=== PATIENT | female | born 1995 | race Caucasian/White ===

== ENCOUNTER 2016-10-08 21:10 | Emergency (ER) | payer OTHER ==
[~2016-10-08] VITALS: Ht 180.3 cm; Wt 70.5 kg
[2016-10-08 21:11] VITALS: BP 137/77; PULSE 72; RESP 16; O2SAT 100
[2016-10-08 21:44] LABS: APPEARANCE,URINE HAZY (CLEAR,HAZY); COLOR,URINE STRAW (YELLOW); OCCULT BLOOD,URINE LARGE (NEGATIVE); PH,URINE 6.5 (5.0-8.0); UROBILINOGEN,URINE NORMAL (NORMAL)
--- NOTE | 2016-10-08 21:58 | ED.REPORT ---
HPI- Female Date of Service Oct 08, 2016 ED Provider: Ghassan Kramer MD A healthy 21 year old female presents to the ED with dysuria that began earlier this afternoon. Associated symptoms include increased urinary frequency. Patient reports similar symptoms during previous UTI's and has had several in the past year. She denies any back pain, abdominal pain, nausea, vomiting or fever. Nursing Notes Stated Complaint: POSSIBLE UTI Chief Complaint: General Complaint Nursing Notes Reviewed: Yes Allergies: Coded Allergies: No Known Allergies (Unverified , 10/08/16) General Time Seen by MD: 21:52 Chief Complaint Dysuria Hx Obtained From: Patient Arrived By: Walk-in Sudden in Onset?: No Onset Occurred: 5 - 8 hours ago Symptom Duration: Since onset Associated with: Reports: UTI symptoms... (Dysuria), Denies: Fever, Nausea, Vomiting Pertinent Negative: Pt denies other symptoms Recent Healthcare: No recent doctor visit, No recent hospitalization Past Medical History Past Medical History None reported Past Surgical History None reported Smoking History Unknown if Ever Smoker Social History Other Social History: Good social support, Local resident Ambulatory Status Independent Review of Systems Constitutional: Denies: Chills, Fever GI: Denies: Abdominal pain, Nausea, Vomiting Female: Reports: Dysuria, Urinary frequency, Denies: Hematuria Musculoskeletal: Denies: Back pain Complete sys rev & neg: except as marked. Physical Exam Initial Vital Signs Vital Signs (First) Date Time Temp Pulse Resp B/P Pulse Ox O2 Delivery O2 Flow Rate FiO2 10/08/16 21:11 36.6 72 16 137/77 100 Room Air Initial VS: Unavailable, Vital signs normal Head / Eyes: Atraumatic, Normocephalic, PERRL Neck: Supple, Non-tender, Full range of motion Extremities: Vascular intact, Neuro intact, No swelling, No tenderness Skin: Warm, Dry, No cyanosis Neurologic: Alert, Oriented, Nonfocal Psychiatric: Mood/affect normal, Behavior normal, Normal thought content Female Genitourinary: Exam deferred Respiratory / Chest: Atraumatic, Breath sounds NL, Breath sounds = bilat, No respiratory distress Cardiovascular: Heart rate NL, Regular rhythm, Heart sounds NL Abdomen: Atraumatic, Soft, Non-tender Back: Atraumatic, Inspection NL, No CVA tenderness Interpretation & Diagnostics Lab Results Interpretation Test 10/08/16 21:12 Urine Color Straw (YELLOW) Urine Appearance Hazy (CLEAR,HAZY) Urine pH 6.5 (5.0-8.0) Urine Specific Stanley 1.002 (1.003-1.035) Urine Protein Negativemg/dL (NEG,TRACE) Urine Glucose (UA) Negativemg/dL (NEGATIVE) Urine Ketones Negativemg/dL (NEGATIVE) Urine Occult Blood Large (NEGATIVE) Urine Nitrite Negative (NEGATIVE) Urine Bilirubin Negative (NEGATIVE) Urine Urobilinogen Normalmg/dL (NORMAL) Urine Leukocyte Esterase Moderate (NEGATIVE) Urine RBC 3-10/hpf (0-2) Urine WBC 11-50/hpf (0-5) Urine Epithelial Cells Few/hpf (NONE-MOD) Urine Crystals None seen (NONE SEEN) Urine Bacteria Moderate/hpf (NONE-FEW) Urine Hyaline Casts None/lpf (NONE) Urine Granular Casts None seen (NONE SEEN) Urine Waxy Casts None seen (NONE SEEN) Urine Red Blood Cell Casts None seen (NONE SEEN) Urine White Blood Cell Casts None seen (NONE SEEN) Urine Mucus Present (None Seen) Urine Trichomonas None seen (NONE SEEN) Urine Yeast None (NONE SEEN) Urinalysis Comment None Urine Culture Reflexed Indicated Re-Eval/Medical Decision Med Decision/Clinical Course Uncomplicated bladder infection by history and laboratory evaluation. Culture pending. She will be placed on antibiotics. Re-Evaluation/Progress : Time of Eval: 22:04 Patient Status: Condition improved Re-Evaluation/Progress Note: Patient is informed of her lab results and diagnosis. All questions about diagnosis are addressed. She understands and agrees with the intended treatment plan. Counseled Regarding: Diagnosis, Lab results, Need for follow-up, When/why to return to ED Discharge & Departure Impression: Primary Impression: Urinary tract infection Urinary tract infection type: acute cystitis Hematuria presence: without hematuria Qualified Code: N30.00 - Acute cystitis without hematuria Disposition: Home Discharge Condition All VS Reviewed: Yes Condition: Improved Patient Instructions: Urinary Tract Infection in Women (ED) Additional Instructions: You have a bladder infection. Plenty of fluids. Cranberry juice. Macrobid ( nitrofurantoin) 100 mg by mouth twice a day, #20 dispensed. Phenazopyridine ( Azo. Uristat) 2 pills 3 times a day as needed for painful urination. Urine recheck in 2-3 weeks to make sure the infection went away. Referrals: [facility] (PCP) Elizabeth Attestation Portions of this note were transcribed by Jevon Mcnulty. I, Dr. Kramer personally performed the history, physical exam and medical decision-making; I reviewed and confirmed the accuracy of the information in the transcribed note. Signed by: Elizabeth Watt, 10/08/16 2232. Ghassan Kramer MD Oct 08, 2016 21:58 JEVON MCNULTY Oct 08, 2016 22:02
[2016-10-08] MEDS ORDERED: Phenazopyridine 97.5 mg Tablet PO ONE (22:10)
[2016-10-09] MEDS ORDERED: _Nitrofurantoin Macrocrystal 100 mg Capsule PO SCH (08:30)
== END 2016-10-08 22:39 | disposition home or self-care (01) ==
LOC: SED 21:10
DX: N30.00 Acute cystitis without hematuria (principal)